=== PATIENT | male | born 1935 | race Caucasian/White ===

== ENCOUNTER 2016-10-13 10:59 | Outpatient (CLI) | payer MEDICARE, BC | END 2016-10-13 23:59 | disposition home or self-care (01) | LOC: WOU 10:59 | PROVIDERS: ATTEND Internal Medicine Hematology & Oncology | DX: C91.10 Chronic lymphocytic leukemia of B-cell type not having achieved remission (principal); C90.00 Multiple myeloma not having achieved remission ==